=== PATIENT | female | born 1975 | race Caucasian/White ===

== ENCOUNTER 2020-01-26 17:56 | Emergency (ER) | payer OTHER ==
--- NOTE | 2020-01-26 18:25 | PDOC ---
Rapid Medical Evaluation Time Seen by Provider: 01/26/20 18:21 Medical Evaluation: 01/26/20 18:21 I performed a brief in-person evaluation of this patient. Pt is a 44 y/o female who presents to the ED stating she was told by the health department to come to the ED for rabies vaccine. The patient was bitten in the abdomen and R leg 2 weeks ago. She states she has not seen the dog since. It was an unknown dog. Pertinent physical exam findings: speaking in full sentences, non toxic I have ordered the following: deferred to treating provider's discretion Patient to proceed to ED for further evaluation. Discharge Disposition - Diagnosis Dog bite - Referrals Referrals: Criss Haq MD [Primary Care Provider] - - Patient Instructions - Post Discharge Activity
[2020-01-26 18:27] VITALS: BP 108/71; PULSE 61; TEMP 98.7; BMI 18.2
[2020-01-26] MEDS ORDERED: RABIES IMMUNE GLOBULIN 300 UNITS/1 ML VIAL IM ONE (18:48)
[2020-01-26] MEDS ORDERED: RABIES VACCINE (PCEC)/PF 2.5 UNIT/VIAL IM ONE (18:48)
--- NOTE | 2020-01-26 19:22 | PDOC ---
History of Present Illness - General Chief Complaint: Bite Stated Complaint: DOG BITE Time Seen by Provider: 01/26/20 18:21 - History of Present Illness Initial Comments: 01/26/20 19:19 44-year-old female without comorbidities presents for evaluation after a dog bite. Patient was walking approximately 10 days ago and was bitten by an unknown dog. [facility] was unable to contact the dog's shredder tender peat and verify vaccination status. Patient was told to receive rabies immunoglobulin vaccinations by the emergency room. Past History - Medical History COPD: No - Reproductive History Is Patient Now?: No - Immunization History Immunization Up to Date: No - Psycho-Social/Smoking History Smoking History: Never smoked - Substance Abuse Hx (Audit-C & DAST Scrn) How often the patient has a drink containing alcohol: Monthly or less Number of drinks the patient has on a typical day: 1 or 2 How often the patient has six or more drinks on one occasion: Never Score: In Men: 4 or > Positive; In Women: 3 or > Positive: 1 Screen Result (Pos requires Nsg. Audit-10AR): Negative In the last yr the pt used illegal drug/Rx for NonMed reason: No Score: Yes response is considered Positive: 0 Screen Result (Positive result requires Nsg. DAST-10): Negative Review of Systems - Review of Systems Constitutional: No: Fever *Physical Exam - Vital Signs Last Vital Signs Temp Pulse Resp BP Pulse Ox 98.7 F 61 16 108/71 100 01/26/20 18:22 01/26/20 18:22 01/26/20 18:22 01/26/20 18:22 01/26/20 18:22 - Physical Exam 01/26/20 19:20 There is a small superficial excoriation with normal surrounding skin color and temperature without induration erythema or areas of fluctuance or tenderness or sensitivity on the right lower quadrant of the abdomen and the right middle lateral aspect of the thigh. Medical Decision Making - Medical Decision Making 01/26/20 19:20 Patient was not given antibiotics initially she is current on tetanus. No indication of infection will forego antibiotic therapy. Immunoglobulin and vaccination was administered vaccine schedule was given to patient she is aware. I have reviewed the pathophysiology with the patient. They are in agreement with the treatment plan all questions were answered to their satisfaction. Understanding for follow-up without fail was also conveyed to the patient. Again they are in agreement. Discharge - Discharge Information Problems reviewed: Yes Clinical Impression/Diagnosis: Dog bite, Rabies, need for prophylactic vaccination against Condition: Stable Disposition: HOME - Admission No - Follow up/Referral Referrals: Criss Haq MD [Primary Care Provider] - - Patient Discharge Instructions Patient Printed Discharge Instructions: DI for Rabies Vaccine Additional Instructions: Return to the emergency room on 01/29/20 For your second vaccination - Post Discharge Activity
== END 2020-01-26 19:34 | disposition home or self-care (01) ==
LOC: JERFT 17:56
DX: Z29.14 Encounter for prophylactic rabies immune globulin (principal)
CPT/HCPCS: 90375; 90675; 99281-25

== ENCOUNTER 2020-01-29 18:04 | Emergency (ER) | payer OTHER ==
[2020-01-29 18:16] VITALS: BP 123/74; PULSE 73; TEMP 97.8; BMI 18.2
[2020-01-29] MEDS ORDERED: RABIES VACCINE (PCEC)/PF 2.5 UNIT/VIAL IM ONE ×2 (18:25)
--- NOTE | 2020-01-29 18:30 | PDOC ---
History of Present Illness - General Chief Complaint: Revisit,Rabies Injection Stated Complaint: RABIES/ SCHEDULED INJECTION Time Seen by Provider: 01/29/20 18:15 History Source: Patient Exam Limitations: No Limitations - History of Present Illness Initial Comments: 01/29/20 18:26 Patient is a 44-year-old female with no past medical history who presents to the ED for her second rabies vaccine. She initially got the first vaccine after being contacted by the health department and being advised to come to the ED as they were unable to locate the dog who caused the dog bite. The patient states she did well after her first rabies vaccine and immunoglobulin. She denies any complaints. She denies any allergies to medications. Past History - Medical History Allergies/Adverse Reactions: Allergies Allergy/AdvReac Type Severity Reaction Status Date / Time No Known Allergies Allergy Verified 01/29/20 18:16 COPD: No - Reproductive History Is Patient Now?: No - Immunization History Immunization Up to Date: No - Psycho-Social/Smoking History Smoking History: Never smoked Have you smoked in the past 12 months: No Information on smoking cessation initiated: No - Substance Abuse Hx (Audit-C & DAST Scrn) How often the patient has a drink containing alcohol: Monthly or less Number of drinks the patient has on a typical day: 1 or 2 How often the patient has six or more drinks on one occasion: Less than monthly Score: In Men: 4 or > Positive; In Women: 3 or > Positive: 2 Screen Result (Pos requires Nsg. Audit-10AR): Negative In the last yr the pt used illegal drug/Rx for NonMed reason: No Score: Yes response is considered Positive: 0 Screen Result (Positive result requires Nsg. DAST-10): Negative Review of Systems - Review of Systems Comments:: 01/29/20 18:27 - Review of Systems Able to Perform ROS?: Yes Constitutional: No: Fever, Chills, Loss of Appetite, Night Sweats, Weakness; positive: Patient returns for second rabies vaccine HEENTM: No: Eye Pain, Vision changes, Ear Pain, Throat Pain, Throat Swelling, Mouth Pain, Difficulty Swallowing Respiratory: No: Cough, Shortness of Breath, Wheezing, Sputum Production Cardiac (ROS): No: Chest Pain, Chest Tightness, Palpitations, Irregular Heart Beat, Edema ABD/GI: No: Nausea, Vomiting, Abdominal Pain, Diarrhea : No Dysuria, No Hematuria, No Frequency, No Urgency Musculoskeletal: No: Muscle Pain, Back Pain, Joint Pain, Muscle Weakness, Neck Pain Integumentary: No: Lesions, Rash Neurological: No: Headache, Numbness, Tingling, Weakness, Speech Difficulties *Physical Exam - Vital Signs Last Vital Signs Temp Pulse Resp BP Pulse Ox 97.8 F 73 18 123/74 100 01/29/20 18:11 01/29/20 18:11 01/29/20 18:11 01/29/20 18:11 01/29/20 18:11 - Physical Exam 01/29/20 18:27 - Physical Exam General Appearance: Nourished, Appropriately Dressed, No Distress HEENT: EOMI, Normal Voice, Hearing Grossly Normal Neck: Supple, No Lymphadenopathy (R), No Lymphadenopathy (L), No Rigidity, No Decreased range of motion Respiratory/Chest: Lungs Clear, Normal Breath Sounds. No Respiratory Distress, No Accessory Muscle Use Cardiovascular: Regular Rhythm, Regular Rate, S1, S2 Musculoskeletal: Normal Inspection. No Decreased Range of Motion Extremity: Normal Capillary Refill, Normal Inspection Integumentary: Normal Color, Dry. 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 Plan: -Second rabies vaccine given -Patient to return on 02/02/2020 for her third rabies vaccine -She understands and agrees with this treatment plan and she is stable for discharge. Discharge - Discharge Information Problems reviewed: Yes Clinical Impression/Diagnosis: Dog bite, Rabies, need for prophylactic vaccination against Condition: Stable Disposition: HOME - Follow up/Referral Referrals: Criss Haq MD [Primary Care Provider] - - Patient Discharge Instructions Additional Instructions: Please return to the emergency department on 02/02/2020 for your third rabies vaccine. - Post Discharge Activity Work/Back to School Note: Rabies Vaccination F/U [employer].
== END 2020-01-29 18:33 | disposition home or self-care (01) ==
LOC: JER 18:04
DX: Z29.14 Encounter for prophylactic rabies immune globulin (principal)
CPT/HCPCS: 90675; 99281-25

== ENCOUNTER 2020-02-02 17:52 | Emergency (ER) | payer OTHER ==
[2020-02-02] MEDS ORDERED: RABIES VACCINE (PCEC)/PF 2.5 UNIT/VIAL IM ONE ×2 (18:02→18:14)
--- NOTE | 2020-02-02 18:02 | PDOC ---
Rapid Medical Evaluation Time Seen by Provider: 02/02/20 18:01 Medical Evaluation: Allergies Allergy/AdvReac Type Severity Reaction Status Date / Time No Known Allergies Allergy Verified 02/02/20 18:00 02/02/20 18:01 Pt presents for a rabies shot. This is day 7 Exam: NAD Orders: rabies vaccine Pt to proceed to the ER for further evaluation Discharge Disposition - Diagnosis Rabies, need for prophylactic vaccination against - Referrals Referrals: Criss Haq MD [Primary Care Provider] - - Patient Instructions - Post Discharge Activity
[2020-02-02 18:09] VITALS: BP 108/71; PULSE 56; TEMP 98.1; BMI 18.2
--- NOTE | 2020-02-02 18:11 | PDOC ---
History of Present Illness - General Chief Complaint: Revisit,Rabies Injection Stated Complaint: 3RD RABIES SHOT Time Seen by Provider: 02/02/20 18:01 History Source: Patient Exam Limitations: No Limitations - History of Present Illness Initial Comments: 02/02/20 18:06 Patient is a 44-year-old female with no past medical history who presents to the ED for her third rabies vaccine. She initially got the first vaccine after being contacted by the health department and being advised to come to the ED as they were unable to locate the dog who caused the dog bite. The patient states she did well after her first two rabies vaccines and the initial immunoglobulin injections. She denies any complaints. She denies any allergies to medications. Past History - Medical History Allergies/Adverse Reactions: Allergies Allergy/AdvReac Type Severity Reaction Status Date / Time No Known Allergies Allergy Verified 02/02/20 18:00 COPD: No - Reproductive History Is Patient Now?: No - Immunization History Immunization Up to Date: No - Psycho-Social/Smoking History Smoking History: Never smoked Have you smoked in the past 12 months: No - Substance Abuse Hx (Audit-C & DAST Scrn) How often the patient has a drink containing alcohol: Monthly or less Number of drinks the patient has on a typical day: 1 or 2 How often the patient has six or more drinks on one occasion: Never Score: In Men: 4 or > Positive; In Women: 3 or > Positive: 1 Screen Result (Pos requires Nsg. Audit-10AR): Negative In the last yr the pt used illegal drug/Rx for NonMed reason: No Score: Yes response is considered Positive: 0 Screen Result (Positive result requires Nsg. DAST-10): Negative Review of Systems - Review of Systems Comments:: 02/02/20 18:07 - Review of Systems Able to Perform ROS?: Yes Constitutional: No: Fever, Chills, Loss of Appetite, Night Sweats, Weakness; positive: Here for rabies vaccine HEENTM: No: Eye Pain, Vision changes, Ear Pain, Throat Pain, Throat Swelling, Mouth Pain, Difficulty Swallowing Respiratory: No: Cough, Shortness of Breath, Wheezing, Sputum Production Cardiac (ROS): No: Chest Pain, Chest Tightness, Palpitations, Irregular Heart Beat, Edema ABD/GI: No: Nausea, Vomiting, Abdominal Pain, Diarrhea : No Dysuria, No Hematuria, No Frequency, No Urgency Musculoskeletal: No: Muscle Pain, Back Pain, Joint Pain, Muscle Weakness, Neck Pain Integumentary: No: Lesions, Rash Neurological: No: Headache, Numbness, Tingling, Weakness, Speech Difficulties *Physical Exam - Vital Signs Last Vital Signs Temp Pulse Resp BP Pulse Ox 98.1 F 56 L 18 108/71 100 02/02/20 18:01 02/02/20 18:01 02/02/20 18:01 02/02/20 18:01 02/02/20 18:01 - Physical Exam 02/02/20 18:08 - Physical Exam General Appearance: Nourished, Appropriately Dressed, No Distress HEENT: EOMI, Normal Voice, Hearing Grossly Normal Neck: Supple, No Lymphadenopathy (R), No Lymphadenopathy (L), No Rigidity, No Decreased range of motion Respiratory/Chest: Lungs Clear, Normal Breath Sounds. No Respiratory Distress, No Accessory Muscle Use Cardiovascular: Regular Rhythm, Regular Rate, S1, S2 Musculoskeletal: Normal Inspection. No Decreased Range of Motion Extremity: Normal Capillary Refill, Normal Inspection Integumentary: Normal Color, Dry. No Rash; no lacerations or puncture wounds appreciated. All wounds are healed. 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 Plan: -Rabies vaccine given -Patient to return to the ED on day 14 which is 02/09/2020 for her fourth and f inal vaccine -She understands and agrees with this treatment plan and she is stable for discharge Discharge - Discharge Information Problems reviewed: Yes Clinical Impression/Diagnosis: Rabies, need for prophylactic vaccination against, Encounter for repeat administration of rabies vaccination Condition: Stable Disposition: HOME - Follow up/Referral Referrals: Criss Haq MD [Primary Care Provider] - - Patient Discharge Instructions Patient Printed Discharge Instructions: DI for Rabies Vaccine Additional Instructions: Return to the emergency department on 02/09/2020 for your fourth and final rabies vaccine. - Post Discharge Activity Work/Back to School Note: Rabies Vaccination F/U [employer].
== END 2020-02-02 18:26 | disposition home or self-care (01) ==
LOC: JERFT 17:52 → JER 17:52 → JERFT 18:26
DX: Z29.14 Encounter for prophylactic rabies immune globulin (principal)
CPT/HCPCS: 90675; 99281-25

== ENCOUNTER 2020-02-09 17:55 | Emergency (ER) | payer OTHER ==
[2020-02-09 18:07] VITALS: BP 115/63; PULSE 64; TEMP 97.2; BMI 18.2
[2020-02-09] MEDS ORDERED: RABIES VACCINE (PCEC)/PF 2.5 UNIT/VIAL IM ONE ×2 (18:07→18:48)
--- NOTE | 2020-02-09 18:07 | PDOC ---
Rapid Medical Evaluation Time Seen by Provider: 02/09/20 18:06 Medical Evaluation: Allergies Allergy/AdvReac Type Severity Reaction Status Date / Time No Known Allergies Allergy Verified 02/09/20 18:05 02/09/20 18:06 Pt presents for her last rabies shot Exam: NAD Orders; rabies Pt to proceed to the ER for further evaluation Discharge Disposition - Diagnosis Rabies, need for prophylactic vaccination against - Referrals - Patient Instructions - Post Discharge Activity
--- NOTE | 2020-02-09 19:04 | PDOC ---
History of Present Illness - General Chief Complaint: Revisit,Rabies Injection Stated Complaint: RABIES VAC Time Seen by Provider: 02/09/20 18:06 History Source: Patient Exam Limitations: Clinical Condition - History of Present Illness Initial Comments: 02/09/20 19:06 Patient with no significant past medical history present for the last vaccine a rabies status post being bitten by a stray dog 2 weeks ago. Patient reported wound to right leg and abdomen has been healing well with no redness or discharge from wound site. Denies fevers, chills, weakness. Denies any other symptoms Is this a multiple visit Asthma Patient?: No Past History - Medical History Allergies/Adverse Reactions: Allergies Allergy/AdvReac Type Severity Reaction Status Date / Time No Known Allergies Allergy Verified 02/09/20 18:05 COPD: No - Reproductive History Is Patient Now?: No - Immunization History Immunization Up to Date: No - Psycho-Social/Smoking History Smoking History: Never smoked Have you smoked in the past 12 months: No - Substance Abuse Hx (Audit-C & DAST Scrn) How often the patient has a drink containing alcohol: 2-4 times / month Number of drinks the patient has on a typical day: 1 or 2 Score: In Men: 4 or > Positive; In Women: 3 or > Positive: 2 Screen Result (Pos requires Nsg. Audit-10AR): Negative In the last yr the pt used illegal drug/Rx for NonMed reason: No Score: Yes response is considered Positive: 0 Screen Result (Positive result requires Nsg. DAST-10): Negative Review of Systems - Review of Systems Able to Perform ROS?: Yes Is the patient limited Kittitian proficient: No Constitutional: No: Chills, Fever, Malaise HEENTM: No: Symptoms Reported, See HPI, Eye Pain, Blurred Vision, Tearing, Recent change in vision, Double Vision, Cataracts, Ear Pain, Ocular Prothesis, Ear Discharge, Nose Pain, Nose Congestion, Tinnitus, Nose Bleeding, Hearing Loss, Throat Pain, Throat Swelling, Mouth Pain, Dental Problems, Difficulty Swallowing, Mouth Swelling, Other Respiratory: No: Symptoms reported, See HPI, Cough, Orthopnea, Shortness of Breath, SOB with Exertion, SOB at Rest, Stridor, Wheezing, Productive cough, Hemoptysis, Other Cardiac (ROS): No: Symptoms Reported, See HPI, Chest Pain, Edema, Irregular Heart Rate, Lightheadedness, Palpitations, Syncope, Chest Tightness, Other ABD/GI: No: Symptoms Reported Musculoskeletal: No: Symptoms Reported, Muscle Pain Integumentary: No: Symptoms Reported, Erythema All Other Systems: Reviewed and Negative *Physical Exam - Vital Signs Last Vital Signs Temp Pulse Resp BP Pulse Ox 97.2 F L 64 18 115/63 100 02/09/20 18:05 02/09/20 18:05 02/09/20 18:05 02/09/20 18:05 02/09/20 18:05 - Physical Exam General Appearance: Yes: Nourished, Appropriately Dressed. No: Apparent Distress HEENT: positive: Normal ENT Inspection Respiratory/Chest: negative: Respiratory Distress, Accessory Muscle Use Musculoskeletal: positive: Normal Inspection Extremity: positive: Normal Inspection, Normal Range of Motion Integumentary: positive: Normal Color Neurologic: positive: Fully Oriented, Alert, Normal Mood/Affect, Normal Response ED Treatment Course - Medications Given in the ED: ED Medications Discontinued Medications Generic Name Dose Route Start Last Admin Trade Name Freq PRN Reason Stop Dose Admin Rabies Vaccine 2.5 unit 02/09/20 18:07 02/09/20 18:48 Rabavert Rabies Vaccine IM 02/09/20 18:08 2.5 unit .ONCE ONE Administration Medical Decision Making - Medical Decision Making 02/09/20 19:07 Patient with no significant past medical history present for the last vaccine a rabies status post being bitten by a stray dog 2 weeks ago. Patient reported wound to right leg and abdomen has been healing well with no redness or discharge from wound site. Denies fevers, chills, weakness. Denies any other symptoms No open wound to leg or abdomen. Wound healed with no skin erythema. Tetanus vaccine given. Patient stable for discharge with follow-up with PCP as needed Discharge - Discharge Information Problems reviewed: Yes Clinical Impression/Diagnosis: Rabies, need for prophylactic vaccination against Dog bite Qualifiers: Encounter type: subsequent encounter Qualified Code(s): W54.0XXD - Bitten by dog, subsequent encounter Condition: Stable Disposition: HOME - Admission No - Follow up/Referral Referrals: Criss Haq MD [Primary Care Provider] - - Patient Discharge Instructions Patient Printed Discharge Instructions: DI for Rabies Vaccine Additional Instructions: This your last vaccine of your revision. Follow-up with your primary care as needed - Post Discharge Activity
== END 2020-02-09 19:06 | disposition home or self-care (01) ==
LOC: JERFT 17:55
PROC: 3E0234Z Introduction of Serum, Toxoid and Vaccine into Muscle, Percutaneous Approach (ICD-10-PCS; principal; 2020-02-09)
DX: Z20.3 Contact with and (suspected) exposure to rabies (principal)
CPT/HCPCS: 90675; 99283-25

== ENCOUNTER 2024-02-17 19:24 | Emergency (ER) | payer OTHER ==
[2024-02-17 19:37] VITALS: BP 104/68; PULSE 55; RESP 18; TEMP 97.7; BMI 18.2
[2024-02-17] MEDS ORDERED: AMOX TR/POT CLAV 875MG/125MG TABLETS (FP) ONE (19:53)
[2024-02-17] MEDS: AMOX TR/POT CLAV 875MG/125MG TABLETS (FP) PO ONE (20:12)
== END 2024-02-17 20:12 | disposition home or self-care (01) ==
LOC: JER 19:24
PROC: 0HQGXZZ Repair Left Hand Skin, External Approach (ICD-10-PCS; principal; 2024-02-17)
DX: S61.452A Open bite of left hand, initial encounter (principal); W54.0XXA Bitten by dog, initial encounter
CPT/HCPCS: 12001; 99283-25

== ENCOUNTER 2024-02-27 19:05 | Emergency (ER) | payer OTHER ==
[2024-02-27 19:14] VITALS: BP 98/61; PULSE 64; RESP 20; TEMP 97.9; BMI 18.2
== END 2024-02-27 20:10 | disposition home or self-care (01) ==
LOC: JERFT 19:05 → JER 19:05 → JERFT 20:10
DX: Z48.01 Encounter for change or removal of surgical wound dressing (principal)
CPT/HCPCS: 99281-25